=== PATIENT | female | born 1990 | race American Indian/Alaskan Native ===

== ENCOUNTER 2021-03-10 14:40 | Emergency (ER) | payer MEDICAID ==
[2021-03-10 14:46] VITALS: BP 131/76
[2021-03-10] MEDS ORDERED: HYDROcodone/ACETAMINOPHEN 5-325 MG TAB PO ONE (14:50)
[2021-03-10] MEDS ORDERED: LIDOCAINE-MPF (1%) 10 MG/1 ML VIAL 5 ML INFILTRATI ONE (14:50)
--- NOTE | 2021-03-10 14:51 | Emergency Department Report ---
Abscess Boil HPI - HPI Chief Complaint: Wound/Laceration Stated Complaint: INCISION ON BUTTOCK PAINFUL Time Seen by Provider: 03/10/21 14:50 Duration: >1 Week Location: Other Severity: Moderate History: Yes Pain, Yes Purulent Drainage, Yes Previous History, Yes Insect Bite, No Fever, No Numbness, No Foreign Body HPI: 30 YO COMES TO ER WITH BUTTOCKS PAIN. SEEN SUNDAY AT [facility] FOR I/D OF BUTTOCKS ABSCESS. WHICH IS DRAINING. THEY SENT HER HOME ON BACRIM/ MOTRIN AND ULTRAM. SHE COMES IN FOR ONGOING PAIN. NO FEVER OR CHILLS. NO ABD PAIN; NO RECTAL PAIN. AMBULATORY AND NON ILL ON EXAM Allergies/Adverse Reactions: Allergies Allergy/AdvReac Type Severity Reaction Status Date / Time No Known Allergies Allergy Unverified 03/10/21 14:45 ED Review of Systems ROS: Stated complaint: INCISION ON BUTTOCK PAINFUL Other details as noted in HPI Comment: All other systems reviewed and negative ED Past Medical Hx - Past Medical History Previous Medical History?: Yes Additional medical history: OBESE - Surgical History Past Surgical History?: No - Family History Family history: no significant - Social History Smoking Status: Never Smoker ED Abscess Boil Physical Exam - Exam General: Vital signs noted. No distress. Alert and acting appropriately. Size: 2 cm Exam: Yes Tenderness, Yes Surrounding Cellulites/Erythema, Yes Normal Neurologic Exam, Yes Normal Circulation, No Fluctuance, No Lymphangitis, No Crepitation, No Heart Murmur ED Course Vital Signs 03/10/21 14:42 Temperature 98.5 F Pulse Rate 98 H Respiratory 16 Rate Blood Pressure 131/76 [Right] O2 Sat by Pulse 99 Oximetry Critical care attestation.: If time is entered above; I have spent that time in minutes in the direct care of this critically ill patient, excluding procedure time. ED Medical Decision Making - Medical Decision Making SEE AT [facility] SUNDAY SENT HOME ON BACTRIM/MOTRIN AND ULTRAM ABSCESS DRAINING NO I/D REQUIRED THEY DID NOT GIVE HER INJECTION WILL GIVE 1 GM ROCEPHIN AND NORCO PO FOR PAIN DC HOME WITH DC INSTRUCTIONS INCLUDING GI/PCP FOLLOW UP PT VERBALIZES UNDERSTANDING OF PLAN OF CARE Vital Signs 03/10/21 14:42 Temperature 98.5 F Pulse Rate 98 H Respiratory 16 Rate Blood Pressure 131/76 [Right] O2 Sat by Pulse 99 Oximetry - Differential Diagnosis ABSCESS FOLLOW UP ED Disposition Clinical Impression: Cellulitis Disposition: 01 HOME / SELF CARE / HOMELESS Is pt being admited?: No Does the pt Need Aspirin: No Condition: Stable Instructions: Cellulitis, Adult Additional Instructions: CONTINUE HOME MEDS SOAK IN WARM BATHS OF EPSOM SALTS EVERY 4 HOURS PEREZ AND TYLENOL OVER THE COUNTER; WITH YOUR ULTRAM FOR PAIN ALLOW WOUND TO DRAIN FOLLOW UP WITH MD WE DISCUSSED REFERRAL BELOW Referrals: NEVIN ARECHIGA MD [Staff Physician] - 3-5 Days JOEL MENDEZ MD [Staff Physician] - 3-5 Days Forms: Work/School Release Form(ED) Time of Disposition: 14:54
[2021-03-12] MEDS ORDERED: HYDROmorphone 1 MG/1 ML INJ ONE (11:59)
== END 2021-03-10 17:23 | disposition home or self-care (01) ==
LOC: ED 14:40
DX: L03.317 Cellulitis of buttock (principal)
CPT/HCPCS: 96372; 99282; J0696

== ENCOUNTER 2021-03-11 20:52 | Inpatient (IN) | payer MEDICAID ==
[2021-03-11] MEDS ORDERED: ACETAMINOPHEN 500 MG TAB PO ONE (22:57)
[2021-03-11] MEDS ORDERED: MORPHINE 4 MG/1 ML INJ IV ONE (23:43)
[2021-03-11] MEDS ORDERED: ONDANSETRON 4 MG/2 ML INJ IV ONE (23:43)
[2021-03-11] MEDS ORDERED: VANCOMYCIN PHARMACY TO DOSE IV SCH (23:45)
--- NOTE | 2021-03-11 23:48 | Emergency Department Report ---
ED General Adult HPI - General Chief complaint: Skin/Abscess/Foreign Body Stated complaint: NAUSEA/VOMITTING Time Seen by Provider: 03/11/21 23:41 Source: patient Mode of arrival: Ambulatory Limitations: No Limitations - History of Present Illness Initial comments: 30-year-old immunocompetent female patient presents to the emergency department with complaints of an abscess to her right buttock starting 6 days ago. This is patient's fourth ED visit for this issue since onset. Patient has already undergone incision and drainage. Patient has been taking multiple pain medications. Patient received IV Rocephin yesterday. Patient has been compliant with Bactrim. Pain is not controlled and according to the patient, the infection appears to be spreading. Patient has not been evaluated by any medical providers outside of the emergency department for this issue. Denies fever, chills, rectal bleeding, melena, bladder dysfunction. Denies all other complaints at this time. Severity scale (0 -10): 10 - Related Data Allergies Allergy/AdvReac Type Severity Reaction Status Date / Time No Known Allergies Allergy Unverified 03/10/21 14:45 ED Review of Systems ROS: Stated complaint: NAUSEA/VOMITTING Other details as noted in HPI Other: GENERAL: Negative for fever. CARDIOVASCULAR: Negative for chest pain. PULMONARY: Negative for shortness of breath. GASTROINTESTINAL: Negative for abdominal pain. MUSCULOSKELETAL: Negative for back pain. NEUROLOGICAL: Negative for headache. INTEGUMENTARY: Positive for abscess. ED Past Medical Hx - Past Medical History Previous Medical History?: Yes Additional medical history: OBESE - Surgical History Past Surgical History?: No - Social History Smoking Status: Never Smoker ED Physical Exam - General Limitations: No Limitations - Other Other exam information: General: Awake, appropriately interactive, no acute distress. Neck: Supple. Full range of motion intact. Cardiovascular: Normal peripheral perfusion. Pulmonary: No respiratory distress. Patient is speaking normally without use of accessory muscles. Skin: Large abscess to the superior right gluteal cleft with overlying erythema, central fluctuance, peripheral induration, and diffuse tenderness. Pain is appropriately proportional to exam findings. No necrosis. No active drainage of purulent matter. Infection does not appear to involve the perineal area. Neurological: No facial asymmetry. Speech is clear. Follows commands. Patient is alert and oriented. Musculoskeletal: Moves all four extremities spontaneously with normal range of motion. Psych: Cooperative. Appropriate mood and affect. ED Course Vital Signs 03/11/21 03/11/21 03/11/21 21:29 21:46 23:03 Temperature 98.9 F Pulse Rate 108 H Respiratory 20 Rate Blood Pressure 145/75 Blood Pressure [Right] O2 Sat by Pulse 100 Oximetry 03/12/21 03/12/21 03/12/21 00:04 01:23 02:49 Temperature 99.4 F Pulse Rate 87 92 H Respiratory 20 16 Rate Blood Pressure Blood Pressure 130/74 109/56 [Right] O2 Sat by Pulse 99 99 Oximetry ED Medical Decision Making - Lab Data Result diagrams: 03/11/21 23:57 03/11/21 23:57 - Radiology Data [facility] [address] [place] [address] Cat Scan Report Signed Patient: CHUCK BOWENS MR#: [id number] : 1990 Acct:[id number] Age/Sex: 30 / F ADM Date: 03/11/21 Loc: ED Attending Dr: Ordering Physician: DANIEL GONZALEZ Date of Service: 03/11/21 Procedure(s): CT pelvis w con Accession Number(s): [id number] cc: DANIEL GONZALEZ CT PELVIS WITH CONTRAST INDICATION / CLINICAL INFORMATION: worsening buttock abscess, failing outpt abx. TECHNIQUE: Axial CT images were obtained through the pelvis after 100 cc of Omnipaque [address] scans at this location are performed using CT dose reduction for ALARA by means of automated exposure control. COMPARISON: None available. FINDINGS: BOWEL: No significant abnormality. APPENDIX: No significant abnormality. PERITONEUM: No free fluid. No free air. No fluid collection. LYMPH NODES: No significant adenopathy. ARTERIES: No significant abnormality. VEINS: No significant abnormality. URINARY BLADDER: No significant abnormality. REPRODUCTIVE ORGANS: No significant abnormality. ADDITIONAL FINDINGS: Involving the right gluteal cleft there is a 8.1 x 4.0 x 9.0 cm fluid collection with adjacent fatty induration. SKELETAL SYSTEM: No significant abnormality. IMPRESSION: 1. Right gluteal cleft abscess measuring 8.1 x 4.0 x 9.0 cm. 2. No other significant findings. Signer Name: Guevara Mariano DO Signed: 03/12/2021 2:01 AM Workstation Name: [id number] Transcribed By: PALOA Dictated By: GUEVARA MARIANO DO Electronically Authenticated By: GUEVARA MARIANO DO Signed Date/Time: 03/12/21200 DD/ 5 TD/TT: - Medical Decision Making Differential diagnosis including but not limited to: Anabella gangrene, necrotizing soft tissue infection, abscess, cellulitis, sebaceous cyst, pyomyositis 02:35: Patient developed urticarial rash following administration of Vancomycin, no airway involvement. Given IV Benadryl, IV Solu-Medrol, and IV Pepcid. Place on monitoring specialist and continuous pulse oximetry. 03:00: On reevaluation, patient is stable and symptoms have improved. Pain is controlled. Labs show leukocytosis with white blood cell count of 14,000. CT of the pelvis shows large right gluteal cleft abscess measuring 8.1 x 4.0 x 9.0 cm with surrounding induration. Patient has failed outpatient therapy on multiple antibiotics and multiple pain medications despite incision & drainage performed earlier this week. Case discussed with Dr. Villegas, general surgeon, who recommends hospital admission and agrees to evaluate patient in the morning. Requested IV Zosyn and NPO. Case discussed with hospitalist, who agrees to admit. Patient expressed understanding and is agreeable to plan of care. Critical care attestation.: If time is entered above; I have spent that time in minutes in the direct care of this critically ill patient, excluding procedure time. ED Disposition Clinical Impression: Gluteal abscess, Failure of outpatient treatment Leukocytosis Qualifiers: Leukocytosis type: unspecified Qualified Code(s): D72.829 - Elevated white blood cell count, unspecified Disposition: 09 ADMITTED INPATIENT Is pt being admited?: Yes Does the pt Need Aspirin: No Condition: Serious Referrals: PRIMARY CARE, [Primary Care Provider] - 3-5 Days Time of Disposition: 02:59
[2021-03-11] MEDS ORDERED: metroNIDAZOLE/NS 500 MG/100 ML 500 MG/100 ML BAG IV ONE (23:52)
[2021-03-12 00:24] LABS: Basophils # (Auto) 0.3 K/mm3 (0.0-0.1); Basophils % (Auto) 1.9 % (0.0-1.8); Eosinophils # (Auto) 0.3 K/mm3 (0.0-0.4); Eosinophils % (Auto) 2.1 % (0.0-4.3); Hemoglobin 12.1 gm/dl (10.1-14.3); Lymphocytes # (Auto) 1.9 K/mm3 (1.2-5.4); Lymphocytes % (Auto) 13.3 % (13.4-35.0); Mean Corpuscular HGB Conc 33 % (30-34); Mean Corpuscular Volume 90 fl (79-97); Monocytes # (Auto) 0.9 K/mm3 (0.0-0.8); Monocytes % (Auto) 6.1 % (0.0-7.3); Platelet Count 410 K/mm3 (140-440); Red Blood Count 4.13 M/mm3 (3.65-5.03); Red Cell Distribution Width 15.3 % (13.2-15.2)
[2021-03-12] MEDS ORDERED: VANCOMYCIN 2,000 MG in SODIUM CHLORIDE 0.9% 500 ML 500 ML IV ONE (00:30)
[2021-03-12 01:00] LABS: Alanine Aminotransferase 25 units/L (7-56); BUN/Creatinine Ratio 10; Blood Urea Nitrogen 8 mg/dL (7-17); Calcium 9.4 mg/dL (8.4-10.2); Hemolysis Index 12
--- NOTE | 2021-03-12 02:05 | Cat Scan Report ---
CT PELVIS WITH CONTRAST INDICATION / CLINICAL INFORMATION: worsening buttock abscess, failing outpt abx. TECHNIQUE: Axial CT images were obtained through the pelvis after 100 cc of Omnipaque [address] scans at this location are performed using CT dose reduction for ALARA by means of automated exposure control. COMPARISON: None available. FINDINGS: BOWEL: No significant abnormality. APPENDIX: No significant abnormality. PERITONEUM: No free fluid. No free air. No fluid collection. LYMPH NODES: No significant adenopathy. ARTERIES: No significant abnormality. VEINS: No significant abnormality. URINARY BLADDER: No significant abnormality. REPRODUCTIVE ORGANS: No significant abnormality. ADDITIONAL FINDINGS: Involving the right gluteal cleft there is a 8.1 x 4.0 x 9.0 cm fluid collection with adjacent fatty induration. SKELETAL SYSTEM: No significant abnormality. IMPRESSION: 1. Right gluteal cleft abscess measuring 8.1 x 4.0 x 9.0 cm. 2. No other significant findings. Signer Name: Guevara Carpenter DO Signed: 03/12/2021 2:01 AM Workstation Name: [id number]
[2021-03-12] MEDS ORDERED: FAMOTIDINE 20 MG/2 ML INJ IV ONE (02:35)
[2021-03-12] MEDS ORDERED: methylPREDNISolone Sod Succinate 125 MG/2 ML INJ IV ONE (02:35)
[2021-03-12] MEDS ORDERED: diphenhydrAMINE 50 MG/ML VIAL IV ONE (02:35)
[2021-03-12] MEDS ORDERED: PIPERACIL/TAZOBACTA 4.5/NS 100 4.5 GM/100 ML VIAL IV ONE (02:50)
--- NOTE | 2021-03-12 03:28 | History and Physical Report ---
History of Present Illness Date of examination: 03/12/21 Date of admission: 03/12/21 Chief complaint: abscess History of present illness: This is a 30-year-old female patient seen in Ed at bedside. She presents to the emergency department with complaints of an abscess to her right buttock starting 6 days ago. This is patient's fourth ED visit for this issue since onset. Patient has already undergone incision and drainage. Patient has been taking multiple pain medications. Patient received IV Rocephin yesterday. Patient has been compliant with Bactrim. Patient reports her pain is unbearable and well controlled. She Denies fever, chills, rectal bleeding, melena, bladder dysfunction. CT pelvis with contrast showed right gluteal cleft abscess with no other significant finding. Patient admits marijuana use denies chronic alcohol use and illicit drug use. Past History Past Surgical History: Social history: lives with family, smoking, full code. denies: alcohol abuse, prescription drug abuse, IV drug use Family history: cancer, diabetes, hypertension, stroke Medications and Allergies Allergies Allergy/AdvReac Type Severity Reaction Status Date / Time vancomycin Allergy Hives Verified 03/12/21 03:50 Active Meds: Active Medications Vancomycin HCl 1,500 mg/ (Sodium Chloride) 530 mls @ 333.333 mls/hr IV Q8H GENARO Sodium Chloride (Sodium Chloride 0.9% 10 Ml Flush Syringe) 10 ml IV PRN PRN PRN Reason: LINE FLUSH Review of Systems Constitutional: fatigue, malaise Ears, nose, mouth and throat: no epistaxis, no bleeding gums Breasts: no pain Cardiovascular: no chest pain Gastrointestinal: no melena Rectal: pain, itching Musculoskeletal: no muscle weakness Integumentary: redness, sores, wounds, other (Right buttocks abscess) Neurological: no convulsions Hematologic/Lymphatic: no easy bruising, no easy bleeding, no lymphadenopathy, no lymphedema Allergic/Immunologic: no urticaria Exam - Constitutional Vitals: Temp Pulse Resp BP Pulse Ox 99.4 F 92 H 16 109/56 99 03/12/21 01:23 03/12/21 02:49 03/12/21 02:49 03/12/21 02:49 03/12/21 02:49 General appearance: Present: mild distress, obese - EENT Eyes: Present: PERRL ENT: hearing intact, clear oral mucosa - Neck Neck: Present: supple, normal ROM - Respiratory Respiratory effort: normal Respiratory: bilateral: CTA - Cardiovascular Heart Sounds: Present: S1 & S2. Absent: rub, click - Extremities Extremities: pulses symmetrical, No edema Peripheral Pulses: within normal limits - Abdominal General gastrointestinal: Present: soft, non-tender, non-distended, normal bowel sounds Female genitourinary: Present: normal - Integumentary Integumentary: Present: clear, warm, dry - Musculoskeletal Musculoskeletal: gait normal, strength equal bilaterally - Psychiatric Psychiatric: appropriate mood/affect, intact judgment & insight, cooperative - Neurologic Neurologic: CNII-XII intact, moves all extremities - Allied Health Allied health notes reviewed: nursing Results - Labs CBC & Chem 7: 03/11/21 23:57 03/11/21 23:57 Labs: Abnormal lab results 03/11/21 03/11/21 Range/Units 23:57 23:57 WBC 14.0 H (4.5-11.0) K/mm3 RDW 15.3 H (13.2-15.2) % Lymph % (Auto) 13.3 L (13.4-35.0) % Baso % (Auto) 1.9 H (0.0-1.8) % [place] # (Auto) 0.9 H (0.0-0.8) K/mm3 Baso # (Auto) 0.3 H (0.0-0.1) K/mm3 Seg Neutrophils % 76.6 H (40.0-70.0) % Seg Neutrophils # 10.8 H (1.8-7.7) K/mm3 Sodium 135 L (137-145) mmol/L Assessment and Plan - Patient Problems (1) Gluteal abscess Current Visit: Yes Status: Acute Plan to address problem: CT pelvis with contrast showed no right gluteal cleft abscess. General surgeon has been consulted. (2) Leukocytosis Current Visit: Yes Status: Acute Qualifiers: Leukocytosis type: unspecified Qualified Code(s): D72.829 - Elevated white blood cell count, unspecified Plan to address problem: Continue with antibiotic therapy Monitor WBC, wound culture, blood culture x2. (3) Cellulitis Current Visit: No Status: Acute Plan to address problem: Continue with empiric antibiotic (4) Morbid obesity due to excess calories Current Visit: Yes Status: Acute Plan to address problem: Discussed lifestyle modification Discussed healthy food, weight management and weight loss (5) DVT prophylaxis Current Visit: Yes Status: Acute Plan to address problem: Subcutaneous Lovenox
[2021-03-12] MEDS ORDERED: NALOXONE 0.4 MG/1 ML INJ IV PRN (03:41)
[2021-03-12] MEDS ORDERED: METOCLOPRAMIDE 10 MG/2 ML INJ IV PRN (03:41)
[2021-03-12] MEDS ORDERED: ACETAMINOPHEN 325 MG TAB PO PRN ×2 (03:41)
[2021-03-12] MEDS ORDERED: ONDANSETRON 4 MG/2 ML INJ IV PRN (03:41)
[2021-03-12] MEDS ORDERED: SENNOSIDES 8.6 MG TAB PO PRN (03:41)
[2021-03-12] MEDS ORDERED: MAGNESIUM HYDROXIDE (MOM) ORAL LIQD UDC PO PRN (03:41)
[2021-03-12] MEDS ORDERED: IBUPROFEN 600 MG TAB PO PRN (03:41)
[2021-03-12] MEDS ORDERED: ALUM-MAG HYDROXIDE-SIMETHICONE 200-200-20MG/5ML ORAL LIQD 30 ML PO PRN (03:41)
[2021-03-12] MEDS ORDERED: HYDROmorphone 1 MG/1 ML INJ IV PRN (03:41)
[2021-03-12] MEDS: MORPHINE 2 MG/1 ML INJ IV PRN ×2 (04:37→23:55)
[2021-03-12] MEDS: SODIUM CHLORIDE 0.9% 1000 ML 1,000 ML IV SCH (05:23)
[2021-03-12] MEDS ORDERED: VANCOMYCIN 1,500 MG in SODIUM CHLORIDE 0.9% 500 ML 500 ML IV SCH (08:00)
[2021-03-12] MEDS ORDERED: BUPIVACAINE/PF (0.5%) 5 MG/1 ML 30 ML VIAL INFILTRATI ONE ×2 (10:16→11:57)
--- NOTE | 2021-03-12 10:22 | Anesthesia Consultation ---
Anesthesia Consult and Med Hx Date of service: 03/12/21 - Airway Anesthetic Teeth Evaluation: Good ROM Head & Neck: Adequate Mental/Hyoid Distance: Adequate Mallampati Class: Class I Intubation Access Assessment: Probably Good - Pulmonary Exam CTA: Yes - Pre-Operative Health Status ASA Pre-Surgery Classification: ASA2 - Pulmonary Hx Smoking: Yes (Half a pack daily) Hx Asthma: No (Bronchitis) Hx Respiratory Symptoms: No SOB: No Home Oxygen Therapy: No Hx Sleep Apnea: No - Cardiovascular System Hx Hypertension: No Hx Angina: No Hx Valvular Heart Disease: No Hx Heart Murmur: No - Central Nervous System Hx Neuromuscular Disorder: No Hx Seizures: No Hx Psychiatric Problems: No - Gastrointestinal Hx Ulcer: No Hx Gastroesophageal Reflux Disease: No - Endocrine Hx Renal Disease: No Hx Liver Disease: No Hx Insulin Dependent Diabetes: No Hx Non-Insulin Dependent Diabetes: No Hx Thyroid Disease: No - Hematic Hx Anemia: No Hx Sickle Cell Disease: No - Other Systems Hx Alcohol Use: Yes (Occasionally) Hx Substance Use: Yes (Marijuana) Hx Obesity: Yes (BMI 38.0kg) - Additional Comments Anesthesia Medical History Comments: Patient denied previous anesthesia complica tion
--- NOTE | 2021-03-12 10:23 | Anesthesia Day of Surgery ---
Anesthesia Day of Surgery - Day of Surgery Patient Examined: Yes Patient H&P Reviewed: Yes Patient is NPO: Yes Beta Blockers: No Cardiac Clearance: No Pulmonary Clearance: No Jasper's Test: N/A
[2021-03-12] MEDS ORDERED: dexAMETHasone 20 MG/5 ML VIAL ONE (10:32)
[2021-03-12] MEDS ORDERED: LIDOCAINE MPF (2%) 20 MG/1 ML VIAL 5 ML ONE (10:32)
[2021-03-12] MEDS ORDERED: KETOROLAC 30 MG/1 ML INJ ONE (10:32)
[2021-03-12] MEDS ORDERED: ONDANSETRON 4 MG/2 ML INJ ONE (10:32)
[2021-03-12] MEDS ORDERED: HYDROmorphone 1 MG/1 ML INJ ONE (10:32)
[2021-03-12] MEDS ORDERED: propofoL 200 MG/20 ML VIAL IV ONE (10:33)
[2021-03-12] MEDS ORDERED: SUCCINYLCHOLINE CHLORIDE 200 MG/10 ML INJ MDV ONE (10:35)
[2021-03-12] MEDS ORDERED: ROCURONIUM 50 MG/5 ML INJ IV ONE (10:37)
--- NOTE | 2021-03-12 11:35 | Event Note ---
Date: 03/12/21 Patient evaluated by Anesthesia and General Surgery with plan to be taken to the OR today for I&D. Patient has listed allergy to vancomycin. Will discontinue vanc/zosyn and start ciprofloxacin and flagyl.
--- NOTE | 2021-03-12 11:40 | Consultation ---
History of Present Illness Consult date: 03/12/21 Chief complaint: Right rectal abscess - History of present illness History of present illness: 30 yo female with multiple ED visits including an ED I&D for a right buttock abscess. She re-presents for continued, progressive right buttock pain. Past History Past Surgical History: Social history: lives with family, smoking, full code. denies: alcohol abuse, prescription drug abuse, IV drug use Family history: cancer, diabetes, hypertension, stroke Medications and Allergies Allergies Allergy/AdvReac Type Severity Reaction Status Date / Time vancomycin Allergy Hives Verified 03/12/21 03:50 Active Meds: Active Medications Acetaminophen (Acetaminophen 325 Mg Tab) 650 mg PO Q4H PRN PRN Reason: Pain MILD(1-3)/Fever >100.5/KELLEY Al Hydrox/Mg Hydrox/Simethicone (Alum-Mag Hydroxide-Simethicone [phone]/5ml Oral Liqd 30 Ml) 30 ml PO Q4H PRN PRN Reason: Indigestion Enoxaparin Sodium (Enoxaparin 40 Mg/0.4 Ml Inj) 40 mg SUB-Q QDAY@2200 GENARO Sodium Chloride (Nacl 0.9% 1000 Ml) 1,000 mls @ 75 mls/hr IV DIRECT GENARO Last Admin: 03/12/21 05:23 Dose: 75 mls/hr Documented by: Metronidazole (Flagyl 500 Mg/100 Ml) 500 mg in 100 mls @ 100 mls/hr IV Q8H GENARO; Protocol Levofloxacin/Dextrose (Levaquin 500mg/100ml) 500 mg in 100 mls @ 100 mls/hr IV Q24H GENARO; Protocol Ibuprofen (Ibuprofen 600 Mg Tab) 600 mg PO Q6H PRN PRN Reason: Pain, Mild (1-3) Magnesium Hydroxide (Magnesium Hydroxide (Mom) Oral Liqd Udc) 30 ml PO Q4H PRN PRN Reason: Constipation Metoclopramide HCl (Metoclopramide 10 Mg/2 Ml Inj) 10 mg IV Q6H PRN PRN Reason: Nausea And Vomiting Morphine Sulfate (Morphine 2 Mg/1 Ml Inj) 2 mg IV Q4H PRN PRN Reason: Pain, Moderate (4-6) Last Admin: 03/12/21 04:37 Dose: 2 mg Documented by: Morphine Sulfate (Morphine 4 Mg/1 Ml Inj) 4 mg IV Q4H PRN PRN Reason: Pain , Severe (7-10) Naloxone HCl (Naloxone 0.4 Mg/1 Ml Inj) 0.1 mg IV Q2MIN PRN PRN Reason: Res Rate </= 8 or 02 SAT < 92% Ondansetron HCl (Ondansetron 4 Mg/2 Ml Inj) 4 mg IV Q8H PRN PRN Reason: Nausea And Vomiting Oxycodone/Acetaminophen (Oxycodone /Acetaminophen 5-325mg Tab) 1 tab PO Q6H PRN PRN Reason: Pain, Moderate (4-6) Senna (Sennosides 8.6 Mg Tab) 8.6 mg PO Q12HR PRN PRN Reason: Constipation Sodium Chloride (Sodium Chloride 0.9% 10 Ml Flush Syringe) 10 ml IV PRN PRN PRN Reason: LINE FLUSH Review of Systems All systems: negative (none) Exam Vital Signs Pulse BP Pulse Ox 108 H 145/75 100 03/11/21 21:29 03/11/21 21:29 03/11/21 21:29 - General physical appearance Positive: well developed, well nourished, no distress - Eyes Positive: PERRL, normal occular movement - ENT Positive: normal pinna, normal nares, normal mucosa, no hearing loss, no congestion - Neck Positive: no masses, no bruits, trachea midline, no venous distension - Respiratory Positive: normal expansion, normal respiratory effort, clear to auscultation - Cardiovascular Rhythm: regular Heart Sounds: Present: S1 & S2. Absent: rub, click - Extremities Extremities: no ischemia, pulses symmetrical, No edema - Breasts Breasts: normal, no mass, no skin changes - Abdomen Abdomen: Present: soft, bowel sounds normal. Absent: tender, distended Hernia: none - Genitourinary Male Genitourinary: normal Female Genitourinary: normal - Rectum Rectum: other (There is a tender, indurated area of the right buttock at 3 o'clock with the pt supine.) - Integumentary no rash, no growths, no abnormal pigmentation - Neurologic Neurologic: alert and oriented to time, place and person, motor strength and sensation are grossly intact - Musculoskeletal normal gait, normal posture - Psychiatric Psychiatric: appropriate mood/affect, intact judgment & insight Results - Labs 03/11/21 23:57 03/11/21 23:57 Abnormal lab results 03/11/21 03/11/21 Range/Units 23:57 23:57 WBC 14.0 H (4.5-11.0) K/mm3 RDW 15.3 H (13.2-15.2) % Lymph % (Auto) 13.3 L (13.4-35.0) % Baso % (Auto) 1.9 H (0.0-1.8) % [place] # (Auto) 0.9 H (0.0-0.8) K/mm3 Baso # (Auto) 0.3 H (0.0-0.1) K/mm3 Seg Neutrophils % 76.6 H (40.0-70.0) % Seg Neutrophils # 10.8 H (1.8-7.7) K/mm3 Sodium 135 L (137-145) mmol/L Diabetes panel 03/11/21 Range/Units 23:57 Sodium 135 L (137-145) mmol/L Potassium 4.2 (3.6-5.0) mmol/L Chloride 101.3 (98-107) mmol/L Carbon Dioxide 23 (22-30) mmol/L BUN 8 (7-17) mg/dL Creatinine 0.8 (0.6-1.2) mg/dL Glucose 97 (65-100) mg/dL Calcium 9.4 (8.4-10.2) mg/dL AST 17 (5-40) units/L ALT 25 (7-56) units/L Alkaline Phosphatase 95 (35-129) units/L Total Protein 8.1 (6.3-8.2) g/dL Albumin 4.0 (3.9-5) g/dL Calcium panel 03/11/21 Range/Units 23:57 Calcium 9.4 (8.4-10.2) mg/dL Albumin 4.0 (3.9-5) g/dL Pituitary panel 03/11/21 Range/Units 23:57 Sodium 135 L (137-145) mmol/L Potassium 4.2 (3.6-5.0) mmol/L Chloride 101.3 (98-107) mmol/L Carbon Dioxide 23 (22-30) mmol/L BUN 8 (7-17) mg/dL Creatinine 0.8 (0.6-1.2) mg/dL Glucose 97 (65-100) mg/dL Calcium 9.4 (8.4-10.2) mg/dL Adrenal panel 03/11/21 Range/Units 23:57 Sodium 135 L (137-145) mmol/L Potassium 4.2 (3.6-5.0) mmol/L Chloride 101.3 (98-107) mmol/L Carbon Dioxide 23 (22-30) mmol/L BUN 8 (7-17) mg/dL Creatinine 0.8 (0.6-1.2) mg/dL Glucose 97 (65-100) mg/dL Calcium 9.4 (8.4-10.2) mg/dL Total Bilirubin 0.30 (0.1-1.2) mg/dL AST 17 (5-40) units/L ALT 25 (7-56) units/L Alkaline Phosphatase 95 (35-129) units/L Total Protein 8.1 (6.3-8.2) g/dL Albumin 4.0 (3.9-5) g/dL Assessment and Plan - Patient Problems (1) Rectal abscess Current Visit: Yes Status: Acute Plan to address problem: 1) To OR for aggressive I&D 2) IV Flagyl and Levaquin
--- NOTE | 2021-03-12 11:45 | Procedure Note ---
Date of procedure: 03/12/21 Pre-op diagnosis: Right rectal abscess Post-op diagnosis: same Procedure: I&D of right rectal abscess Description of procedure: GETA was administered with the pt supine on her stretcher. Pt was re-positioned supine on the OR table. Buttocks were taped a part. Right buttock was prepped and draped. A small incision was made over the previous I&D site with immediate expression of a large amount of pus. The pus was collected for C&S. The abscess cavity was probed with my index finger and the abscess cavity tracked caudally. The abscess cavity was completely unroofed with the Bovie. Hemostasis was obtained with the Bovie. The wound was irrigate d with warm saline. The wound was then packed open with a dilute Betadine moistened Kerlix roll followed by dry 4 X 4's on the skin and Medipore tape. Pt tolerated the procedure well. Pt was extubated in the OR and was taken to PACU in stable condition. Anesthesia: GETA Surgeon: LILLY BUCHANAN Estimated blood loss: minimal Pathology: list (C&S) Specimen disposition: to lab Condition: stable Disposition: PACU
[2021-03-12] MEDS ORDERED: SODIUM CHLORIDE 0.9% IRR 1,500 ML BOTTLE IR ONE (11:58)
[2021-03-12] MEDS: HYDROmorphone 1 MG/1 ML INJ IV PRN ×2 (12:00→12:10)
[2021-03-12] MEDS ORDERED: PIPERACIL/TAZOBACTA 4.5/NS 100 4.5 GM/100 ML VIAL IV SCH (12:00)
--- NOTE | 2021-03-12 12:28 | Post Anesthesia Evaluation ---
- Post Anesthesia Evaluation Patient Participated: Yes Airway Patent: Yes Stable Respiratory Function: Yes Nausea/Vomiting: No Temp > 96.8F: Yes Pain Manageable: Yes Adequeate Hydration: Yes Anesthesia Complications: No Block Receding Appropriately: Not Applicable Patient on Ventilator: No
[2021-03-12] MEDS: metroNIDAZOLE/NS 500 MG/100 ML 500 MG/100 ML BAG IV SCH ×2 (14:42→22:15)
[2021-03-12] MEDS: MORPHINE 4 MG/1 ML INJ IV PRN (19:30)
[2021-03-12] MEDS: oxyCODONE /ACETAMINOPHEN 5-325MG TAB PO PRN (19:41)
[2021-03-12] MEDS: ENOXAPARIN 40 MG/0.4 ML INJ SUB-Q SCH (21:10)
[2021-03-13] MEDS: oxyCODONE /ACETAMINOPHEN 5-325MG TAB PO PRN (01:46)
[2021-03-13] MEDS: metroNIDAZOLE/NS 500 MG/100 ML 500 MG/100 ML BAG IV SCH (05:42)
[2021-03-13 06:07] LABS: Hematocrit 32.9 % (30.3-42.9); Hemoglobin 10.7 gm/dl (10.1-14.3); Lymphocytes # (Auto) 1.2 K/mm3 (1.2-5.4); Lymphocytes % (Auto) 8.3 % (13.4-35.0); Mean Corpuscular HGB Conc 33 % (30-34); Mean Corpuscular Volume 91 fl (79-97); Monocytes # (Auto) 0.8 K/mm3 (0.0-0.8); Monocytes % (Auto) 6.1 % (0.0-7.3); Platelet Count 357 K/mm3 (140-440); Red Blood Count 3.62 M/mm3 (3.65-5.03); Red Cell Distribution Width 15.5 % (13.2-15.2)
[2021-03-13] MEDS: MORPHINE 4 MG/1 ML INJ IV PRN ×2 (06:17→20:29)
[2021-03-13 06:26] LABS: Alanine Aminotransferase 19 units/L (7-56); Albumin 3.3 g/dL (3.9-5); Blood Urea Nitrogen 12 mg/dL (7-17); Calcium 8.7 mg/dL (8.4-10.2); Hemolysis Index 0
[2021-03-13 06:38] LABS: BUN/Creatinine Ratio 17
[2021-03-13] MEDS ORDERED: oxyCODONE /ACETAMINOPHEN 5-325MG TAB PO PRN (10:15)
[2021-03-13] MEDS ORDERED: oxyCODONE 5 MG TAB PO PRN (10:15)
--- NOTE | 2021-03-13 13:54 | Progress Note ---
Assessment and Plan Assessment and plan: 30-year-old female with no significant past medical history who presented with nausea, vomiting and malaise was found to have a perirectal abscess that failed outpatient treatment. #Perirectal abscess -s/p I&D 03/12 -s/p levaquin and flagyl -wound culture growing some staph aureus -clindamycin started, will discharge with seven day total course -f/u with surgery outpatient Disposition Plan: Home Total Time Spent with Patient (Minutes): 20 min History Interval history: No acute events overnight. Patient complains of pain at I&D site. No other complaints at this time. Hospitalist Physical - Physical exam Narrative exam: GENERAL: Well-developed well-nourished. Lying on the side of the bed in no acute distress. HEENT: Normocephalic. Atraumatic. CHEST/LUNGS: CTAB on room air HEART/CARDIOVASCULAR: RRR. No murmur, rubs or gallops appreciated. ABDOMEN: +BS. NT/ND. SKIN: Right buttock I&D site packing draining serosanguineous fluid. NEURO: No focal motor deficit. Follows all commands. EXTREMITIES: No cyanosis, clubbing or edema. PSYCH: Cooperative. - Constitutional Vitals: Temp Pulse Resp BP Pulse Ox 98.3 F 72 18 117/67 99 03/13/21 04:57 03/13/21 04:57 03/13/21 04:57 03/13/21 04:57 03/13/21 04:57 General appearance: Present: mild distress, obese Results - Labs CBC & Chem 7: 03/14/21 04:00 03/14/21 04:00 Labs: Laboratory Last Values WBC 13.9 K/mm3 (4.5-11.0) H 03/13/21 05:34 RBC 3.62 M/mm3 (3.65-5.03) L 03/13/21 05:34 Hgb 10.7 gm/dl (10.1-14.3) 03/13/21 05:34 Hct 32.9 % (30.3-42.9) 03/13/21 05:34 MCV 91 fl (79-97) 03/13/21 05:34 MCH 30 pg (28-32) 03/13/21 05:34 MCHC 33 % (30-34) 03/13/21 05:34 RDW 15.5 % (13.2-15.2) H 03/13/21 05:34 Plt Count 357 K/mm3 (140-440) 03/13/21 05:34 Lymph % (Auto) 8.3 % (13.4-35.0) L 03/13/21 05:34 Dundy % (Auto) 6.1 % (0.0-7.3) 03/13/21 05:34 Eos % (Auto) 0.0 % (0.0-4.3) 03/13/21 05:34 Baso % (Auto) 0.0 % (0.0-1.8) 03/13/21 05:34 Lymph # (Auto) 1.2 K/mm3 (1.2-5.4) 03/13/21 05:34 Dundy # (Auto) 0.8 K/mm3 (0.0-0.8) 03/13/21 05:34 Eos # (Auto) 0.0 K/mm3 (0.0-0.4) 03/13/21 05:34 Baso # (Auto) 0.0 K/mm3 (0.0-0.1) 03/13/21 05:34 Seg Neutrophils % 85.6 % (40.0-70.0) H 03/13/21 05:34 Seg Neutrophils # 11.8 K/mm3 (1.8-7.7) H 03/13/21 05:34 Sodium 139 mmol/L (137-145) 03/13/21 05:34 Potassium 4.1 mmol/L (3.6-5.0) 03/13/21 05:34 Chloride 104.8 mmol/L (98-107) 03/13/21 05:34 Carbon Dioxide 23 mmol/L (22-30) 03/13/21 05:34 Anion Gap 15 mmol/L 03/13/21 05:34 BUN 12 mg/dL (7-17) 03/13/21 05:34 Creatinine 0.7 mg/dL (0.6-1.2) 03/13/21 05:34 Estimated GFR > 60 ml/min 03/13/21 05:34 BUN/Creatinine Ratio 17 % 03/13/21 05:34 Glucose 123 mg/dL (65-100) H 03/13/21 05:34 Calcium 8.7 mg/dL (8.4-10.2) 03/13/21 05:34 Total Bilirubin < 0.20 mg/dL (0.1-1.2) 03/13/21 05:34 AST 14 units/L (5-40) 03/13/21 05:34 ALT 19 units/L (7-56) 03/13/21 05:34 Alkaline Phosphatase 74 units/L (35-129) 03/13/21 05:34 Total Protein 6.8 g/dL (6.3-8.2) 03/13/21 05:34 Albumin 3.3 g/dL (3.9-5) L 03/13/21 05:34 Albumin/Globulin Ratio 0.9 % 03/13/21 05:34 HCG, Qual Negative (Negative) 03/11/21 23:57 Blood Type A POSITIVE 03/12/21 04:05 Antibody Screen Negative 03/12/21 04:05 Microbiology: Microbiology 03/12/21 19:40 Stool Stool Culture - Preliminary 03/12/21 10:24 Peripheral/Venous Blood Culture - Preliminary NO GROWTH AFTER 24 HOURS 03/12/21 05:59 Peripheral/Venous Blood Culture - Preliminary NO GROWTH AFTER 24 HOURS 03/12/21 06:58 Wound - Deep Wound Culture - Preliminary 03/12/21 Unknown Rectum Surgical Culture - Preliminary Staphylococcus Aureus Lind/IV: Voiding Method Toilet Active Medications - Current Medications Current Medications: Generic Name Dose Route Start Last Admin Trade Name Freq PRN Reason Stop Dose Admin Acetaminophen 650 mg 03/12/21 03:41 Acetaminophen 325 Mg Tab PO Q4H PRN Pain MILD(1-3)/Fever >100.5/KELLEY Al Hydrox/Mg Hydrox/Simethicone 30 ml 03/12/21 03:41 Alum-Mag Hydroxide-Simethicone [id number]/5ml Oral Liqd 30 Ml PO Q4H PRN Indigestion Enoxaparin Sodium 40 mg 03/12/21 22:00 03/12/21 21:10 Enoxaparin 40 Mg/0.4 Ml Inj SUB-Q 40 mg QDAY@2200 GENARO Administration Sodium Chloride 1,000 mls @ 75 mls/hr 03/12/21 03:45 03/12/21 05:23 Nacl 0.9% 1000 Ml IV 75 mls/hr DIRECT GENARO Administration Clindamycin HCl 300 mg in 50 mls @ 100 mls/hr 03/13/21 14:00 Cleocin 300 Mg/50 Ml IV Q6H GENARO Protocol Ibuprofen 600 mg 03/12/21 03:41 Ibuprofen 600 Mg Tab PO Q6H PRN Pain, Mild (1-3) Magnesium Hydroxide 30 ml 03/12/21 03:41 Magnesium Hydroxide (Mom) Oral Liqd Udc PO Q4H PRN Constipation Metoclopramide HCl 10 mg 03/12/21 03:41 Metoclopramide 10 Mg/2 Ml Inj IV Q6H PRN Nausea And Vomiting Morphine Sulfate 2 mg 03/12/21 03:41 03/12/21 23:55 Morphine 2 Mg/1 Ml Inj IV 2 mg Q4H PRN Administration Pain, Moderate (4-6) Morphine Sulfate 4 mg 03/12/21 03:41 03/13/21 06:17 Morphine 4 Mg/1 Ml Inj IV 4 mg Q4H PRN Administration Pain , Severe (7-10) Naloxone HCl 0.1 mg 03/12/21 03:41 Naloxone 0.4 Mg/1 Ml Inj IV Q2MIN PRN Res Rate </= 8 or 02 SAT < 92% Ondansetron HCl 4 mg 03/12/21 03:41 Ondansetron 4 Mg/2 Ml Inj IV Q8H PRN Nausea And Vomiting Oxycodone HCl 10 mg 03/13/21 10:15 Oxycodone 5 Mg Tab PO Q6H PRN Pain, Moderate (4-6) Oxycodone/Acetaminophen 1 tab 03/13/21 10:15 Oxycodone /Acetaminophen 5-325mg Tab PO Q4H PRN Pain, Moderate (4-6) Senna 8.6 mg 03/12/21 03:41 Sennosides 8.6 Mg Tab PO Q12HR PRN Constipation Sodium Chloride 10 ml 03/12/21 02:59 Sodium Chloride 0.9% 10 Ml Flush Syringe IV PRN PRN LINE FLUSH Nutrition/Malnutrition Assess - Dietary Evaluation Nutrition/Malnutrition Findings: Nutrition Notes Start: 03/12/21 13:2 2 Freq: Status: Active Protocol: Document 03/12/21 13:22 ARNULFO (Rec: 10/16/21 13:26 NHALL [id number]) Nutrition Notes Need for Assessment generated from: short goods drier,MST Initial or Follow up Brief Note Other Pertinent Diagnosis (R) gluteal abscess s/p incision and drainage with debridement Current Diet NPO Labs/Tests reviewed Pertinent Medications reviewed Height 5 ft 8 in Weight 113.398 kg Bath Body Weight (kg) 63.63 BMI 38.0 Weight Status Obese Subjective/Other Information Pt screened for malnutrition risk and skin risk (Christiano score: 22). Burn Absent Trauma Absent Minimum of two criteria No Is patient on ventilator? No Is Patient Ambulatory and/or Out of Bed No REE-([facility]-confined to bed) 2284.500 Kcal/Kg value to use for calculation 16 Approximate Energy Requirements Using 1814 kcal/Kg Calculation Used for Recommendations Kcal/kg Additional Notes Pro needs 0.8-1g/kg adjBW: 71- 89g/day Fluid needs 1ml/kcal Nutrition Intervention Follow-Up By: 03/17/21 Additional Comments F/U: diet advancement/intakes
[2021-03-13] MEDS ORDERED: CLINDAMYCIN 300 MG/50 mL 300 MG/50 ML BAG IV SCH (14:30)
[2021-03-13] MEDS: CLINDAMYCIN 300 MG/50 mL 300 MG/50 ML BAG IV SCH (19:10)
[2021-03-14] MEDS: CLINDAMYCIN 300 MG/50 mL 300 MG/50 ML BAG IV SCH ×2 (00:18→05:53)
[2021-03-14] MEDS: MORPHINE 4 MG/1 ML INJ IV PRN ×2 (00:19→05:25)
[2021-03-14] MEDS: SODIUM CHLORIDE 0.9% 1000 ML 1,000 ML IV SCH (00:19)
[2021-03-14] MEDS: ENOXAPARIN 40 MG/0.4 ML INJ SUB-Q SCH (00:19)
[2021-03-14 04:58] VITALS: BP 110/72
[2021-03-14 05:39] LABS: Hematocrit 30.6 % (30.3-42.9); Hemoglobin 10.6 gm/dl (10.1-14.3); Mean Corpuscular HGB Conc 35 % (30-34); Mean Corpuscular Volume 90 fl (79-97); Platelet Count 411 K/mm3 (140-440); Red Blood Count 3.41 M/mm3 (3.65-5.03)
[2021-03-14 05:52] LABS: Blood Urea Nitrogen 14 mg/dL (7-17); Calcium 8.4 mg/dL (8.4-10.2); Hemolysis Index 2
[2021-03-14 06:00] LABS: BUN/Creatinine Ratio 20
--- NOTE | 2021-03-14 07:27 | Discharge Summary ---
Providers - Providers Date of Admission: 03/12/21 05:03 Date of discharge: 03/14/21 Attending physician: RAMA GRIGSBY MD 03/12/21 02:57 Consult to Physician [CONS] Stat Comment: Consulting Provider: LILLY BUCHANAN Physician Instructions: Reason For Exam: gluteal abscess Primary care physician: PROVIDER RELATIONS COORDINATOR Hospitalization Reason for admission: pain in buttock Condition: Fair Procedures: Incision and drainage of perirectal abscess Hospital course: 30-year-old female with no significant medical history presented with right buttock pain. CT pelvis with contrast showed a right gluteal cleft abscess with no other significant findings. She was admitted for incision and drainage of gluteal abscess. She was started on empiric antibiotics. Wound culture grew MRSA. Patient was stable and discharged with antibiotics and follow-up with wound care clinic. Disposition: 01 HOME / SELF CARE / HOMELESS Final Discharge Diagnosis (Prints w/discharge instructions): Perirectal abscess. Leukocytosis Time spent for discharge: 10 minutes Core Measure Documentation - Palliative Care Palliative Care/ Comfort Measures: Not Applicable - Core Measures Any of the following diagnoses?: none Exam - Physical Exam Narrative exam: GENERAL: Well-developed well-nourished. Lying on the side of the bed in no acute distress. CHEST/LUNGS: CTAB on room air HEART/CARDIOVASCULAR: RRR. No murmur, rubs or gallops appreciated. ABDOMEN: +BS. NT/ND. SKIN: Right buttock I&D site packing draining serosanguineous fluid. EXTREMITIES: No cyanosis, clubbing or edema. PSYCH: Cooperative. - Constitutional Vitals: Temp Pulse Resp BP Pulse Ox 98.2 F 75 18 110/72 96 03/14/21 04:57 03/14/21 04:57 03/14/21 04:57 03/14/21 04:57 03/14/21 04:57 Plan Follow up with: ELIECER KIRKPATRICK MD [Primary Care Provider] - 3-5 Days LILLY BUCHANAN MD [Staff Physician] - 14 Days (wound care clinic) Prescriptions: Clindamycin [Clindamycin CAP] 300 mg PO Q8H 7 Days #21 cap Oxycodone HCl/Acetaminophen [Percocet 7.5/325 mg] 1 each PO Q6HR PRN 5 Days #20 tablet PRN Reason: Pain
[2021-03-14] MEDS: MORPHINE 2 MG/1 ML INJ IV PRN (09:10)
== END 2021-03-14 11:30 | disposition home or self-care (01) | DRG 345 ==
LOC: ED 20:52 → 3A 03-12 05:03
PROVIDERS: ADMIT Internal Medicine Geriatric Medicine; ATTEND Student in an Organized Health Care Education/Training Program
PROC: 0D9P0ZZ Drainage of Rectum, Open Approach (ICD-10-PCS; principal; 2021-03-12)
DX: K61.1 Rectal abscess (principal); L02.31 Cutaneous abscess of buttock; D72.829 Elevated white blood cell count, unspecified; E66.01 Morbid (severe) obesity due to excess calories; F17.210 Nicotine dependence, cigarettes, uncomplicated; Z80.9 Family history of malignant neoplasm, unspecified; Z68.37 Body mass index [BMI] 37.0-37.9, adult; Z83.3 Family history of diabetes mellitus; Z82.3 Family history of stroke; Z82.49 Family history of ischemic heart disease and other diseases of the circulatory system
CPT/HCPCS: 36415; 72193; 80048; 80053; 84703; 85025; 85027; 86403; 86850; 86900; 86901; 87040; 87045; 87075; 87076; 87116; 87186; G0378; J0330; J1100; J1170; J1200; J1650; J1885; J1956; J2270; J2405; J2543; J2704; J2930; J3370; J7030; J7040; Q9967

== ENCOUNTER 2021-05-09 14:36 | Emergency (ER) | payer MEDICAID ==
[2021-05-09 15:03] VITALS: BP 152/97
--- NOTE | 2021-05-09 15:34 | Emergency Department Report ---
Pediatric URI - HPI Chief Complaint: Upper Respiratory Infection Stated Complaint: FEVER/BA/SOB Time Seen by Provider: 05/09/21 15:33 Symptoms: Yes Shortness of Breath, Yes Able to Tolerate Fluids, No Rhinorrhea, No Sore Throat, No Ear Pain, No Cough, No Good Urine Output, No Listless Behavior Other History: 31-year-old -[place] female presents to the emergency room for 3-day history of chills generalized body aches fever nausea. She is not vaccinated for Covid or flu. She reports that she feels like she has to fluid not Covid. She has never been tested for Covid. She also complains of constipation. She denies any past medical history has been taken [id number] Tylenol Cold and flu last dose was last night. ED Review of Systems ROS: Stated complaint: FEVER/BA/SOB Other details as noted in HPI Comment: All other systems reviewed and negative Pediatric Past Medical History - Chronic Health Problems Hx Asthma: No (Bronchitis) Hx Renal Disease: No Hx Sickle Cell Disease: No Hx Seizures: No Additional medical history: OBESE ED Peds URI Exam - Exam General: Vital signs noted. No distress. Alert and acting appropriately. HEENT: Yes Moist Mucous Membranes, No Pharyngeal Erythema, No Pharyngeal Exudates, No Rhinorrhea, No Conjuctival Injection, No Frontal Tenderness, No Maxillary Tenderness Ear: Neither TM Bulge, Neither TM Erythema, Neither EAC Pain, Neither EAC Discharge, Neither Cerumen Impaction Neck: No Adenopathy, No Supple Lungs: No Good Air Exchange, No Wheezes, No Ronchi, No Stridor, No Cough, No Labored Respirations, No Retractions, No Use of Accessory Muscles, No Other Abnormal Lung Sounds Heart: Yes Regular, No Murmur Abdomen: Yes Normal Bowel Sounds, No Tenderness, No Peritoneal Signs Skin: No Rash, No Eczema Neurologic: Alert and oriented, no deficits. Musculoskeletal: Unremarkable. ED Course Vital Signs 05/09/21 15:02 Temperature 98.8 F Pulse Rate 85 Respiratory 16 Rate Blood Pressure 152/97 [Left] O2 Sat by Pulse 100 Oximetry ED Medical Decision Making - Medical Decision Making 31-year-old -[place] female presents to the emergency room for 3-day history of chills generalized body aches fever nausea. She is not vaccinated for Covid or flu. She reports that she feels like she has to fluid not Covid. She has never been tested for Covid. She also complains of constipation. She denies any past medical history has been taken [id number] Tylenol Cold and flu last dose was last night. Discussed with patient that she has passed the time for Tamiflu to be effective if she does have the flu. I encourage patient to get Covid tested. As well as Covid vaccination. I explained to patient that she needs to continue drinking plenty of fluids she can take Tylenol ibuprofen as needed for body aches. Patient be referred to her primary care provider. Critical care attestation.: If time is entered above; I have spent that time in minutes in the direct care of this critically ill patient, excluding procedure time. ED Disposition Clinical Impression: Acute viral syndrome Disposition: 01 HOME / SELF CARE / HOMELESS Is pt being admited?: No Does the pt Need Aspirin: No Condition: Stable Instructions: Viral Respiratory Infection, [id number] Additional Instructions: Your symptoms appear most consistent with a nonspecific viral syndrome. However, given this current pandemic, COVID-19 is in the differential of possibilities. Despite your previous negative COVID-19 test, I do recommend repeat outpatient Covid 19 testing. In the meantime, isolate/quarantine you rself and stay away from anyone who is elderly, immunocompromised or chronically ill. You can use ibuprofen every 6-8 hours and Tylenol every 4-8 hours, using the dosing on the back of the bottle, as needed for any fever or body aches. Return to the emergency department with any worsening of your symptoms, development of chest pain or shortness of breath, or with any acute distress. Referrals: [facility] [Provider Group] - 3-5 Days Forms: Work/School Release Form(ED) Time of Disposition: 15:48
== END 2021-05-09 16:26 | disposition home or self-care (01) ==
LOC: ED 14:36
DX: B34.9 Viral infection, unspecified (principal); Z88.1 Allergy status to other antibiotic agents; Z79.899 Other long term (current) drug therapy
CPT/HCPCS: 99282